=== PATIENT | male | born 1990 | race Caucasian/White ===

== ENCOUNTER 2019-01-20 20:15 | Emergency (ER) | payer SELFPAY ==
[~2019-01-20] VITALS: Ht 165.1 cm; Wt 86.2 kg
[2019-01-20 20:25] VITALS: BP 125/93; Ht 165.1 cm; Wt 86.2 kg
[2019-01-20 20:59] LABS: BASOPHIL % 0.3 % (0-2); PLATELET COUNT 211 x10^3mcL (130-400); RED CELL DISTRIBUTION WIDTH 13.5 % (11.5-14.5)
[2019-01-20 21:13] LABS: CALCIUM 9.5 mg/dL (8.5-10.1); CARBON DIOXIDE 25.1 mmol/L (21-32); CHLORIDE SERUM 102 mmol/L (98-107); CREATININE SERUM 1.3 mg/dL (0.7-1.3); GFR1 > 60 mL/min; GLUCOSE SERUM 94 mg/dL (74-106); POTASSIUM SERUM 4.1 mmol/L (3.5-5.1); SODIUM SERUM 139 mmol/L (136-145)
[2019-01-20 21:18] LABS: ALBUMIN 4.4 g/dL (3.4-5.0); ALKALINE PHOSPHATASE 72 U/L (46-116); ALT/SGPT 28 U/L (16-63); AST/SGOT 13 U/L (15-37); BILIRUBIN TOTAL 0.66 mg/dL (0.20-1.00); LIPASE 96 IU/L (73-393); TOTAL PROTEIN, SERUM 8.1 g/dL (6.4-8.2)
== END 2019-01-20 22:33 | disposition home or self-care (01) ==
LOC: ED 20:15
DX: R10.11 Right upper quadrant pain (principal)
CPT/HCPCS: 36415

== ENCOUNTER 2019-02-06 12:04 | Emergency (ER) | payer MEDICAID ==
[~2019-02-06] VITALS: Ht 165.1 cm; Wt 85.3 kg
[2019-02-06 12:30] VITALS: Ht 165.1 cm; Wt 85.3 kg
[2019-02-06 14:04] LABS: BASOPHIL % 0.5 % (0-2); PLATELET COUNT 199 x10^3mcL (130-400); RED CELL DISTRIBUTION WIDTH 13.3 % (11.5-14.5)
[2019-02-06 14:56] VITALS: BP 135/66
== END 2019-02-06 14:56 | disposition home or self-care (01) ==
LOC: ED 12:04
PROVIDERS: Emergency Medicine
DX: K92.1 Melena (principal); R04.0 Epistaxis; R11.10 Vomiting, unspecified
CPT/HCPCS: 36415